=== PATIENT | male | born 1975 | race Caucasian/White ===

== ENCOUNTER 2017-03-08 07:37 | Emergency (ER) | payer OTHER ==
[~2017-03-08] VITALS: Ht 185.4 cm; Wt 108.0 kg
[2017-03-08 08:29] LABS: ADD MIUA? YES; BILIRUBIN NEGATIVE; BLOOD SMALL; COLOR YELLOW ((YELLOW)); GLUCOSE (STRIP) NEGATIVE; KETONES NEGATIVE; LEUKOCYTES NEGATIVE; NITRITE NEGATIVE; PROTEIN (STRIP) NEGATIVE; SPECIFIC GRAVITY 1.019 (1.000-1.030); UROBILINOGEN 0.2 MG/DL (0.2-1.0)
[2017-03-08 08:32] LABS: BACTERIA NONE SEEN /HPF; CALCIUM OXALATE CRYSTALS 1+ /HPF; EPITHELIAL CELLS NONE SEEN /HPF; MUCUS TRACE /LPF; RED BLOOD CELLS 0-5 /HPF (0-5); UCUL ADDED? NO; WHITE BLOOD CELLS 0-5 /HPF (0-5)
[2017-03-08 08:58] LABS: HEMATOCRIT 43.9 % (38.0-50.0); MCH 28.7 PG (29.0-34.0); MCHC 34.6 G/DL (30.0-36.0); MEAN PLAT.VOLUME 9.2 uM^3 (9.0-12.4); PLATELET COUNT 202 K/uL (156-360); RBC DIS.WIDTH-CV 12.5 % (11.8-14.6); RED BLOOD COUNT 5.29 M/uL (4.00-5.50); WHITE BLOOD COUNT 4.9 K/uL (4.1-10.2)
[2017-03-08 09:13] LABS: CHLORIDE 106 mEq/L (99-109); POTASSIUM 4.3 mEq/L (3.7-5.4)
[2017-03-08 09:14] LABS: SODIUM 138 mEq/L (136-147)
[2017-03-08 09:16] LABS: GLUCOSE 126 mg/dL (70-99)
[2017-03-08 09:17] LABS: ANION GAP 8 MEQ/L (2-14)
[2017-03-08 09:18] LABS: TOTAL BILIRUBIN 0.3 mg/dL (0.0-1.0)
[2017-03-08 09:19] LABS: ALKALINE PHOSPHATASE 88 IU/L (3-129)
[2017-03-08 09:20] LABS: GFR ESTIMATE (CALCULATED) > 59 mL/min/
[2017-03-08 09:21] LABS: UREA NITROGEN (BUN) 13 mg/dL (9-23)
[2017-03-08] MEDS ORDERED: LIDODERM 5% P1 PATCH TD (10:09)
[2017-03-08] MEDS ORDERED: TRAMADOL HCL50 MG PO (10:09)
[2017-03-08] MEDS ORDERED: IBUPROFEN800 MG PO (10:09)
[2017-03-08] MEDS ORDERED: BACLOFEN10 MG PO (10:09)
[2017-03-08 11:07] VITALS: BP 120/77
== END 2017-03-08 11:10 | disposition home or self-care (01) ==
LOC: EME 07:37
PROVIDERS: Nurse Practitioner Family
DX: S39.012A Strain of muscle, fascia and tendon of lower back, initial encounter (principal); X58.XXXA Exposure to other specified factors, initial encounter; M62.830 Muscle spasm of back; N20.0 Calculus of kidney; K57.30 Diverticulosis of large intestine without perforation or abscess without bleeding; Z87.442 Personal history of urinary calculi; Z87.891 Personal history of nicotine dependence
CPT/HCPCS: 74176; 80053; 81003; 85027; 99281; 99285; J1885

== ENCOUNTER 2017-12-24 00:22 | Emergency (ER) | payer OTHER ==
[~2017-12-24] VITALS: Ht 182.9 cm; Wt 105.0 kg
[~2017-12-24 00:22] MED LIST: BACLOFEN10 MG PO; IBUPROFEN800 MG PO; LIDODERM 5% P1 PATCH TD; TRAMADOL HCL50 MG PO
[2017-12-24 01:03] LABS: HEMATOCRIT 42.2 % (38.0-50.0); MCH 29.6 PG (29.0-34.0); MCHC 35.5 G/DL (30.0-36.0); MCV 83.2 FL (86-99); PLATELET COUNT 221 K/uL (156-360); RBC DIS.WIDTH-CV 12.5 % (11.8-14.6); RBC DIS.WIDTH-SD 37.8 % (39-53); RED BLOOD COUNT 5.07 M/uL (4.00-5.50); WHITE BLOOD COUNT 7.6 K/uL (4.1-10.2)
[2017-12-24 01:11] LABS: CHLORIDE 106 mEq/L (99-109); POTASSIUM 3.9 mEq/L (3.7-5.4); SODIUM 138 mEq/L (136-147)
[2017-12-24 01:13] LABS: GLUCOSE 105 mg/dL (70-99)
[2017-12-24 01:17] LABS: CREATININE 0.9 mg/dL (0.6-1.3); GFR ESTIMATE (CALCULATED) > 59 mL/min/ (58.99-99999)
[2017-12-24 01:18] LABS: UREA NITROGEN (BUN) 11 mg/dL (9-23)
[2017-12-24 01:26] LABS: TROP-I INTERPRETATION NEGATIVE; TROPONIN-I < 0.01 ng/mL (0.0-0.30)
[2017-12-24 04:33] LABS: TROP-I INTERPRETATION NEGATIVE; TROPONIN-I 0.01 ng/mL (0.0-0.30)
[2017-12-24 05:36] VITALS: BP 125/80
== END 2017-12-24 05:36 | disposition home or self-care (01) ==
LOC: EME 00:22
PROVIDERS: Nurse Practitioner Family
DX: R07.9 Chest pain, unspecified (principal); M54.2 Cervicalgia; R51 Headache; R42 Dizziness and giddiness; I10 Essential (primary) hypertension; Z87.442 Personal history of urinary calculi; Z88.0 Allergy status to penicillin; Z72.0 Tobacco use
CPT/HCPCS: 71046; 80048; 84484; 85027; 93005; 99281; 99285